=== PATIENT | female | born 1965 | race Caucasian/White ===

== ENCOUNTER 2021-06-23 18:28 | Emergency (ER) | payer OTHER ==
[~2021-06-23 18:28] MED LIST: ALPRAZOLAM0.5 MG PO; FLUOXETINE HCL40 MG PO; ISENTRESS400 MG PO; METHOCARBAMOL500 MG NG; MULT-VIT-FLUOR0.5 M1; NAPROXEN500 MG PO; PERCOCET 5-3251 EACH PO; PRILOSEC20 MG; TRUVADA 200 MG1 EACH PO
[2021-06-23] MEDS ORDERED: PERCOCET 10-321 EACH PO (23:21)
== END 2021-06-23 23:52 | disposition home or self-care (01) ==
LOC: ED 18:28
DX: S42.021A Displaced fracture of shaft of right clavicle, initial encounter for closed fracture (principal); S52.571A Other intraarticular fracture of lower end of right radius, initial encounter for closed fracture; S52.201A Unspecified fracture of shaft of right ulna, initial encounter for closed fracture; F17.200 Nicotine dependence, unspecified, uncomplicated; V29.9XXA Motorcycle rider (driver) (passenger) injured in unspecified traffic accident, initial encounter
CPT/HCPCS: 29125; 70450; 71045; 71260; 72125; 73000; 73100; 73110; 74177; 80053; 81001; 83690; 84703; 85025; 86850; 86900; 86901; 99284-25; G0480; J3010; J7030; Q9967

== ENCOUNTER 2021-07-01 10:40 | Day surgery (SDC) | payer OTHER ==
[~2021-07-01] VITALS: Ht 157.5 cm; Wt 63.0 kg
[~2021-07-01 10:40] MED LIST changes: +PERCOCET 10-321 EACH PO
[2021-07-01] MEDS ORDERED: OXYCODONE HCL5 MG PO (14:11)
--- NOTE | 2021-07-01 15:11 | NUR ---
07/01/21 1511 Katelin Mora 1406 PT ARRIVED IN PACU SLEEPY. R ARM ELEVATED ON PILLOWS. 1415 RESTING. REU. 1430 AWAKENS TO VERBAL STIMULI. NO C/O'S. 1445 GETTING DRESSED WITH STAND BY ASSIST. SLING TO R ARM PLACED. DC INSTRUCTIONS GIVEN. ALL QUESTIONS ANSWERED. 1501 LEFT VIA W/C.
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
== END 2021-07-01 15:01 | disposition home or self-care (01) ==
LOC: DS 10:40
PROVIDERS: ATTEND Specialist
PROC: 0PSH04Z Reposition Right Radius with Internal Fixation Device, Open Approach (ICD-10-PCS; principal; 2021-07-01 14:15)
DX: S52.501A Unspecified fracture of the lower end of right radius, initial encounter for closed fracture (principal); S42.021B Displaced fracture of shaft of right clavicle, initial encounter for open fracture; V29.9XXA Motorcycle rider (driver) (passenger) injured in unspecified traffic accident, initial encounter; G89.18 Other acute postprocedural pain; F17.200 Nicotine dependence, unspecified, uncomplicated; Z88.5 Allergy status to narcotic agent
CPT/HCPCS: 01830; 64417; 73100; 76942; C1713; J0690; J1100; J2001; J2250; J2405; J2704; J2795; J7121